=== PATIENT | female | born 1985 | race Caucasian/White ===

== ENCOUNTER → 2016-06-11 | Outpatient (CLI) | payer OTHER ==
[~2016-06-11] MED LIST: AMINOPHYLLIN200 MG PO; AMOXICILLIN500 MG PO; BACTRIM DS 8001 TA1 PO; CIPRO250 MG PO; CLINDAMYCIN HC300 MG PO; CLINDAMYCIN150 MG PO; DIFLUCAN150 MG PO; FLONASE ALLERG9.9 ML NAS; GABAPENTIN100 M2 PO; HEPARIN5000 UNIT/ SC; HYDROCODONE BIT1 T11 PO; IBU-8800 MG PO; KEFLEX500 M1 PO; KEFLEX500 MG PO; LOTRISONE 0.05%1 CRE TP; MACROBID100 M1 PO; MACROBID100 M1 SG; Motrin,Rufen800 MG PO; NAPROSYN375 MG PO; NKHM; PEN-VEE K500 MG PO; PENICILLIN VK500 MG PO; PENICILLIN-VK500 MG PO; PONSTEL250 MG PO; PRENATAL1 TA2 PO; PRENATAL1 TA7 PO; Percocet 325 MG1 TAB PO; Peridex 473 ML473 ML PO; TOPICAINE4% T; TYLENOL W/CODEI1 TA2 PO; ULTRAM50 MG PO; VICODIN 5/500 505 MG PO; VICODIN 500 MG-1 TAB PO; ZOFRAN ODT8 MG PO
[2016-06-11 14:27] LABS: HEMATOCRIT 41.5 % (37.0-47.0); HEMOGLOBIN 13.2 g/dl (12.0-16.0); MEAN CELL VOLUME 86.8 fl (81.0-99.0); MEAN CORPUSCULAR HGB 27.6 pg (27.0-31.0); MEAN CORPUSCULAR HGB CONC 31.8 g/dl (33.0-37.0); MEAN PLATELET VOLUME 10.9 fl (9.6-12.3); RED BLOOD COUNT 4.78 10*6/uL (4.10-5.10); WHITE BLOOD COUNT 7.3 10*3/uL (4.8-10.8)
[2016-06-11 14:44] LABS: ALBUMIN 3.2 gm/dl (3.1-4.5); ALKALINE PHOSPHATASE 61 U/L (45-117); BILIRUBIN, TOTAL 0.3 mg/dl (0.2-1.0); BUN 7 mg/dl (7-24); CARBON DIOXIDE 31 mmol/L (21-32); CHLORIDE 107 mmol/L (98-107); CHOLESTEROL 162 mg/dL (<200); EST GLOM FILT AFRICAN AMERICAN > 60 ml/min; GLUCOSE 83 mg/dL (65-99); HDL CHOLESTEROL 55 mg/dl (40-60); LDL CHOLESTEROL 82 mg/dL (9-159); POTASSIUM 4.1 mmol/L (3.5-5.1); SGOT/AST 11 IU/L (3-35); SGPT/ALT 17 U/L (12-78); SODIUM 146 mmol/L (136-145); TOTAL PROTEIN 6.9 gm/dL (6.4-8.2); TRIGLYCERIDES 127 mg/dl (<150); VLDL CHOLESTEROL 25 mg/dL (6-40)
== END | disposition home or self-care (01) ==
LOC: LAB 13:57
PROVIDERS: Family Medicine
DX: M25.562 Pain in left knee (principal); M25.531 Pain in right wrist; E55.9 Vitamin D deficiency, unspecified; E78.00 Pure hypercholesterolemia, unspecified; R53.83 Other fatigue; R05 Cough; M76.9 Unspecified enthesopathy, lower limb, excluding foot

== ENCOUNTER 2016-10-22 22:46 | Emergency (ER) | payer OTHER ==
[~2016-10-22] VITALS: Wt 136.1 kg
[2016-10-22 22:51] VITALS: BP 124/68
[2016-10-22 23:12] LABS: BASO % 0.3 % (0.0-1.0); EOS # 0.2 10*3/uL (0.0-0.4); EOS % 1.6 % (1.0-4.0); HEMATOCRIT 38.1 % (37.0-47.0); HEMOGLOBIN 12.3 g/dl (12.0-16.0); LYMPH # 2.2 10*3/uL (1.3-4.4); LYMPH % 21.5 % (27.0-41.0); MEAN CELL VOLUME 87.2 fl (81.0-99.0); MEAN CORPUSCULAR HGB 28.1 pg (27.0-31.0); MEAN CORPUSCULAR HGB CONC 32.3 g/dl (33.0-37.0); MEAN PLATELET VOLUME 10.1 fl (9.6-12.3); MONO # 0.6 10*3/uL (0.1-1.0); MONO % 6.2 % (3.0-9.0); NEUT # 7.3 10*3/uL (2.3-7.9); PLATELET COUNT AUTOMATED 231 10*3/uL (130-400); RED BLOOD COUNT 4.37 10*6/uL (4.10-5.10); RED CELL DISTRI WIDTH 13.6 % (0-14.5); WHITE BLOOD COUNT 10.4 10*3/uL (4.8-10.8)
[2016-10-22 23:23] LABS: BUN 8 mg/dl (7-24); CHLORIDE 101 mmol/L (98-107); CREATININE 0.61 mg/dL (0.55-1.02); POTASSIUM 3.7 mmol/L (3.5-5.1); SODIUM 139 mmol/L (136-145)
== END 2016-10-23 00:04 | disposition home or self-care (01) ==
LOC: ED 22:46
PROVIDERS: Emergency Medicine Emergency Medical Services
DX: O46.91 Antepartum hemorrhage, unspecified, first trimester (principal); Z88.6 Allergy status to analgesic agent; F17.200 Nicotine dependence, unspecified, uncomplicated; Z3A.00 Weeks of gestation of pregnancy not specified

== ENCOUNTER → 2016-10-24 | Outpatient (CLI) | payer OTHER | END | disposition home or self-care (01) | LOC: US 08:30 | DX: Z32.01 Encounter for pregnancy test, result positive (principal) ==

== ENCOUNTER 2016-11-10 19:52 | Emergency (ER) | payer OTHER ==
[~2016-11-10] VITALS: Ht 175.2 cm; Wt 165.6 kg
[2016-11-10] MEDS ORDERED: CLINDAMYCIN HC300 MG PO (20:42)
[2016-11-10 20:48] VITALS: BP 140/84
== END 2016-11-10 20:44 | disposition home or self-care (01) ==
LOC: ED 19:52
DX: K02.9 Dental caries, unspecified (principal); F17.200 Nicotine dependence, unspecified, uncomplicated; Z88.6 Allergy status to analgesic agent

== ENCOUNTER 2017-07-03 23:54 | Emergency (ER) | payer OTHER ==
[~2017-07-03] VITALS: Ht 175.2 cm; Wt 170.1 kg
[2017-07-03 23:57] VITALS: BP 139/80
[2017-07-04] MEDS ORDERED: AMOXICILLIN500 M2 PO (00:56)
== END 2017-07-04 00:55 | disposition home or self-care (01) ==
LOC: ED 23:54
DX: K08.89 Other specified disorders of teeth and supporting structures (principal); F17.200 Nicotine dependence, unspecified, uncomplicated; Z88.6 Allergy status to analgesic agent; Z79.899 Other long term (current) drug therapy

== ENCOUNTER 2017-08-19 23:10 | Emergency (ER) | payer OTHER ==
[~2017-08-19] VITALS: Ht 172.7 cm; Wt 108.9 kg
[~2017-08-19 23:10] MED LIST changes: +AMOXICILLIN500 M2 PO
[2017-08-19 23:14] VITALS: BP 138/75
[2017-08-20] MEDS ORDERED: PENICILLIN VK500 MG PO (00:34)
== END 2017-08-20 00:51 | disposition home or self-care (01) ==
LOC: ED 23:10
DX: K02.9 Dental caries, unspecified (principal); F17.200 Nicotine dependence, unspecified, uncomplicated; Z98.890 Other specified postprocedural states; Z88.5 Allergy status to narcotic agent; Z79.899 Other long term (current) drug therapy

== ENCOUNTER 2017-08-22 03:34 | Emergency (ER) | payer OTHER ==
[~2017-08-22] VITALS: Wt 158.8 kg
[2017-08-22 03:35] VITALS: BP 152/98
[2017-08-22] MEDS ORDERED: CLINDAMYCIN150 MG PO (04:10)
[2017-08-22] MEDS ORDERED: TYLENOL325 M1 PO (04:10)
[2017-08-22] MEDS ORDERED: IBU800 MG PO (04:10)
== END 2017-08-22 04:26 | disposition home or self-care (01) ==
LOC: ED 03:34
DX: K08.89 Other specified disorders of teeth and supporting structures (principal); F17.200 Nicotine dependence, unspecified, uncomplicated; Z88.6 Allergy status to analgesic agent

== ENCOUNTER 2017-09-26 12:50 | Emergency (ER) | payer OTHER ==
[~2017-09-26] VITALS: Ht 175.2 cm; Wt 181.4 kg
[~2017-09-26 12:50] MED LIST changes: +IBU800 MG PO; +TYLENOL325 M1 PO
[2017-09-26 12:53] VITALS: BP 135/70
[2017-09-26] MEDS ORDERED: DOXYCYCLINE100 M3 PO (14:03)
== END 2017-09-26 14:11 | disposition home or self-care (01) ==
LOC: ED 12:50
DX: L03.116 Cellulitis of left lower limb (principal); Z88.6 Allergy status to analgesic agent

== ENCOUNTER 2018-07-12 04:13 | Emergency (ER) | payer OTHER ==
[~2018-07-12] VITALS: Ht 175.2 cm; Wt 142.9 kg
[~2018-07-12 04:13] MED LIST changes: +CEPHALEXIN500 M1 PO; +DOXYCYCLINE100 M3 PO
[2018-07-12 04:16] VITALS: BP 111/57
[2018-07-12 05:38] LABS: BILIRUBIN NEGATIVE (NEGATIVE); BLOOD NEGATIVE (NEGATIVE); CLARITY CLEAR (CLEAR); COLOR YELLOW (YELLOW); GLUCOSE NEGATIVE (NEGATIVE); KETONE NEGATIVE (NEGATIVE); LEUKO ESTERASE NEGATIVE (NEGATIVE); NITRITE NEGATIVE (NEGATIVE); SPECIFIC GRAVITY 1.025 (1.005-1.030); UROBILINOGEN 0.2 E.U./dl (0.2-1.0)
[2018-07-12 05:48] LABS: RBC 0-2 rbc/hpf (0-2); WBC 0-2 wbc/hpf (0-5)
[2018-07-12 06:50] LABS: BASO # 0.1 10*3/uL (0.0-0.1); BASO % 0.5 % (0.0-1.0); EOS # 0.1 10*3/uL (0.0-0.4); HEMOGLOBIN 14.2 g/dl (12.0-16.0); LYMPH # 3.3 10*3/uL (1.3-4.4); LYMPH % 22.1 % (27.0-41.0); MEAN CELL VOLUME 86.6 fl (81.0-99.0); MEAN CORPUSCULAR HGB 26.7 pg (27.0-31.0); MEAN CORPUSCULAR HGB CONC 30.9 g/dl (33.0-37.0); MEAN PLATELET VOLUME 10.2 fl (9.6-12.3); MONO % 6.9 % (3.0-9.0); NEUT # 10.2 10*3/uL (2.3-7.9); PLATELET COUNT AUTOMATED 317 10*3/uL (130-400); RED BLOOD COUNT 5.31 10*6/uL (4.10-5.10); WHITE BLOOD COUNT 14.7 10*3/uL (4.8-10.8)
[2018-07-12 07:13] LABS: ALBUMIN 3.3 gm/dl (3.1-4.5); ALKALINE PHOSPHATASE 88 U/L (45-117); BUN 9 mg/dl (7-24); CHLORIDE 105 mmol/L (98-107); CREATININE 0.82 mg/dL (0.55-1.02); POTASSIUM 4.2 mmol/L (3.5-5.1); SGOT/AST 9 IU/L (3-35); SGPT/ALT 20 U/L (12-78); SODIUM 140 mmol/L (136-145); TOTAL PROTEIN 7.8 gm/dL (6.4-8.2)
[2018-07-12] MEDS ORDERED: NORCO 5-325 TA1 EACH PO (07:31)
== END 2018-07-12 07:29 | disposition home or self-care (01) ==
LOC: ED 04:13
PROVIDERS: Emergency Medicine
DX: S29.012A Strain of muscle and tendon of back wall of thorax, initial encounter (principal); N13.2 Hydronephrosis with renal and ureteral calculous obstruction; E66.01 Morbid (severe) obesity due to excess calories; F17.200 Nicotine dependence, unspecified, uncomplicated; Z88.6 Allergy status to analgesic agent; X58.XXXA Exposure to other specified factors, initial encounter; Y93.89 Activity, other specified; Y92.89 Other specified places as the place of occurrence of the external cause; Y99.8 Other external cause status

== ENCOUNTER 2018-11-02 18:27 | Emergency (ER) | payer OTHER ==
[~2018-11-02] VITALS: Ht 167.6 cm
[~2018-11-02 18:27] MED LIST changes: +NORCO 5-325 TA1 EACH PO
[2018-11-02 18:28] VITALS: BP 129/72
[2018-11-02] MEDS ORDERED: DOXYCYCLINE100 M3 PO (18:55)
[2018-11-02] MEDS ORDERED: VISTARIL25 MG PO (18:55)
[2018-11-02] MEDS ORDERED: LIDEX 0.05% CRE15 GM T (18:55)
== END 2018-11-02 19:13 | disposition home or self-care (01) ==
LOC: ED 18:27
DX: S30.861A Insect bite (nonvenomous) of abdominal wall, initial encounter (principal); L03.311 Cellulitis of abdominal wall; F17.200 Nicotine dependence, unspecified, uncomplicated; Z88.1 Allergy status to other antibiotic agents; Z88.5 Allergy status to narcotic agent; Z79.899 Other long term (current) drug therapy; Z90.49 Acquired absence of other specified parts of digestive tract; W57.XXXA Bitten or stung by nonvenomous insect and other nonvenomous arthropods, initial encounter; Y93.84 Activity, sleeping; Y92.098 Other place in other non-institutional residence as the place of occurrence of the external cause; Y99.8 Other external cause status

== ENCOUNTER 2019-04-30 23:51 | Emergency (ER) | payer OTHER ==
[~2019-04-30] VITALS: Ht 175.2 cm; Wt 142.4 kg
[~2019-04-30 23:51] MED LIST changes: +LIDEX 0.05% CRE15 GM T; +VISTARIL25 MG PO
[2019-05-01 00:03] VITALS: BP 105/64
[2019-05-01] MEDS ORDERED: NORCO 5-325 TA1 EACH PO (02:06)
== END 2019-05-01 02:16 | disposition home or self-care (01) ==
LOC: ED 23:51
DX: S80.01XA Contusion of right knee, initial encounter (principal); F17.200 Nicotine dependence, unspecified, uncomplicated; Z88.1 Allergy status to other antibiotic agents; Z88.6 Allergy status to analgesic agent; W01.0XXA Fall on same level from slipping, tripping and stumbling without subsequent striking against object, initial encounter; Y93.89 Activity, other specified; Y92.89 Other specified places as the place of occurrence of the external cause; Y99.8 Other external cause status

== ENCOUNTER → 2020-04-12 | Outpatient (CLI) | payer OTHER | END | disposition home or self-care (01) | LOC: US 14:00 | PROVIDERS: ATTEND Family Medicine | DX: G43.909 Migraine, unspecified, not intractable, without status migrainosus (principal) ==

== ENCOUNTER 2020-10-02 12:53 | Emergency (ER) | payer OTHER ==
[~2020-10-02] VITALS: Ht 172.7 cm; Wt 136.1 kg
[2020-10-02 13:13] VITALS: BP 133/67
[2020-10-02 14:07] LABS: BASO # 0.1 10*3/uL (0.0-0.1); BASO % 0.9 % (0.0-1.0); EOS # 0.3 10*3/uL (0.0-0.4); EOS % 3.2 % (1.0-4.0); LYMPH # 1.8 10*3/uL (1.3-4.4); LYMPH % 22.7 % (27.0-41.0); MEAN CELL VOLUME 91.1 fl (81.0-99.0); MEAN CORPUSCULAR HGB 28.7 pg (27.0-31.0); MEAN CORPUSCULAR HGB CONC 31.5 g/dl (33.0-37.0); MEAN PLATELET VOLUME 9.9 fl (9.6-12.3); MONO # 0.7 10*3/uL (0.1-1.0); MONO % 8.5 % (3.0-9.0); NEUT % 64.4 % (47.0-73.0); PLATELET COUNT AUTOMATED 315 10*3/uL (130-400); RED CELL DISTRI WIDTH 13.3 % (0-14.5); WHITE BLOOD COUNT 7.8 10*3/uL (4.8-10.8)
[2020-10-02 14:28] LABS: ALBUMIN 2.7 gm/dl (3.1-4.5); ALKALINE PHOSPHATASE 74 U/L (45-117); BUN 10 mg/dl (7-24); CHLORIDE 106 mmol/L (98-107); CREATININE 0.73 mg/dL (0.55-1.02); SGOT/AST 5 IU/L (3-35); SGPT/ALT 15 U/L (12-78); SODIUM 140 mmol/L (136-145); TOTAL PROTEIN 6.8 gm/dL (6.4-8.2)
[2020-10-02] MEDS ORDERED: SEPTDS PO (14:54)
== END 2020-10-02 15:31 | disposition home or self-care (01) ==
LOC: ED 12:53
PROVIDERS: Emergency Medicine
DX: O86.00 Infection of obstetric surgical wound, unspecified (principal); E66.01 Morbid (severe) obesity due to excess calories; F17.200 Nicotine dependence, unspecified, uncomplicated; Z88.1 Allergy status to other antibiotic agents; Z88.5 Allergy status to narcotic agent; Z79.2 Long term (current) use of antibiotics; Z98.890 Other specified postprocedural states; Z87.442 Personal history of urinary calculi; Z68.42 Body mass index [BMI] 45.0-49.9, adult; Z79.899 Other long term (current) drug therapy

== ENCOUNTER 2021-07-16 16:32 | Emergency (ER) | payer OTHER ==
[~2021-07-16] VITALS: Wt 158.8 kg
[~2021-07-16 16:32] MED LIST changes: +SEPTDS PO
[2021-07-16 16:43] VITALS: BP 127/65
[2021-07-16] MEDS ORDERED: CYCLOBENZAPRINE10 MG PO (17:30)
[2021-07-16] MEDS ORDERED: TYLENOL325 M1 PO (17:30)
[2021-07-16] MEDS ORDERED: ARTHRITIS PAI42.5 GM T (17:30)
[2021-07-16] MEDS ORDERED: NAPROXEN250 MG PO (17:30)
[2021-07-16] MEDS ORDERED: [UNRECOGNIZED DRUG - CODE] T (17:32)
== END 2021-07-16 17:49 | disposition home or self-care (01) ==
LOC: ED 16:32
DX: G89.29 Other chronic pain (principal); M79.604 Pain in right leg; B37.2 Candidiasis of skin and nail; Z88.1 Allergy status to other antibiotic agents; Z88.8 Allergy status to other drugs, medicaments and biological substances; Z87.891 Personal history of nicotine dependence; Z90.49 Acquired absence of other specified parts of digestive tract; Z98.890 Other specified postprocedural states

== ENCOUNTER 2021-12-08 16:52 | Emergency (ER) | payer OTHER ==
[~2021-12-08] VITALS: Ht 172.7 cm; Wt 158.8 kg
[~2021-12-08 16:52] MED LIST changes: +ARTHRITIS PAI42.5 GM T; +CYCLOBENZAPRINE10 MG PO; +NAPROXEN250 MG PO; +[UNRECOGNIZED DRUG - CODE] T
[2021-12-08 17:07] VITALS: BP 138/79
[2021-12-08] MEDS ORDERED: Motrin,Rufen800 MG PO (18:37)
[2021-12-08] MEDS ORDERED: CLEOCIN HCL150 MG PO (18:37)
== END 2021-12-08 19:20 | disposition home or self-care (01) ==
LOC: ED 16:52
DX: K08.89 Other specified disorders of teeth and supporting structures (principal); Z88.1 Allergy status to other antibiotic agents; Z88.8 Allergy status to other drugs, medicaments and biological substances; Z98.890 Other specified postprocedural states; Z87.891 Personal history of nicotine dependence; Z90.49 Acquired absence of other specified parts of digestive tract

== ENCOUNTER → 2022-01-10 | Outpatient (CLI) | payer OTHER ==
[~2022-01-10] MED LIST changes: +CLEOCIN HCL150 MG PO
[2022-01-10 11:06] LABS: BASO % 0.5 % (0.0-1.0); BILIRUBIN Negative (Negative); BLOOD Negative (Negative); CLARITY Cloudy (Clear); COLOR Yellow (Yellow); GLUCOSE Negative (Negative); HEMATOCRIT 46.5 % (37.0-47.0); KETONE Trace (Negative); LEUKO ESTERASE 2+ (Negative); LYMPH # 1.1 10*3/uL (1.3-4.4); LYMPH % 18.3 % (27.0-41.0); MEAN CELL VOLUME 84.7 fl (81.0-99.0); MEAN CORPUSCULAR HGB 27.5 pg (27.0-31.0); MEAN CORPUSCULAR HGB CONC 32.5 g/dl (33.0-37.0); MEAN PLATELET VOLUME 10.4 fl (9.6-12.3); MONO # 0.8 10*3/uL (0.1-1.0); MONO % 12.4 % (3.0-9.0); NEUT # 4.3 10*3/uL (2.3-7.9); NEUT % 68.5 % (47.0-73.0); NITRITE Positive (Negative); PH 5.5 (4.5-8.0); PLATELET COUNT AUTOMATED 182 10*3/uL (130-400); RED BLOOD COUNT 5.49 10*6/uL (4.10-5.10); RETICULOCYTE % 0.74 % (0.50-2.50); SPECIFIC GRAVITY 1.025 (1.001-1.030); WHITE BLOOD COUNT 6.2 10*3/uL (4.8-10.8)
[2022-01-10 11:28] LABS: ALKALINE PHOSPHATASE 74 U/L (45-117); BUN 8 mg/dl (7-24); CHLORIDE 106 mmol/L (98-107); CHOLESTEROL 174 mg/dL (<200); CREATININE 0.73 mg/dL (0.55-1.02); GAMMA GLUTAMYL TRANSPEPTIDASE 24 U/L (5-55); IRON 28 ug/dL (50-170); LDL CHOLESTEROL 104 mg/dL (9-159); POTASSIUM 3.6 mmol/L (3.5-5.1); SGPT/ALT 18 U/L (12-78); SODIUM 139 mmol/L (136-145); T3 UPTAKE 31 % (31-39); THYROXINE (T4) TOTAL 14.3 ug/dl (4.8-13.9); TOTAL PROTEIN 7.9 gm/dL (6.4-8.2); TRIGLYCERIDES 77 mg/dl (<150); URIC ACID 4.2 mg/dL (2.6-6.0)
[2022-01-10 11:35] LABS: THYROID STIM HORMONE (HS) 0.834 uIU/ml (0.358-4.75)
[2022-01-10 12:55] LABS: BACTERIA 4+
[2022-01-10 12:56] LABS: MUCOUS TRACE
[2022-01-10 12:57] LABS: WBC 21-30 wbc/hpf (0-5)
[2022-01-12 16:05] LABS: ANTI-DSDNA ANTIBODIES <1 IU/mL (0-9)
== END | disposition home or self-care (01) ==
LOC: LAB 09:49
PROVIDERS: ATTEND Family Medicine
DX: M17.0 Bilateral primary osteoarthritis of knee (principal); R79.89 Other specified abnormal findings of blood chemistry; R53.83 Other fatigue; E55.9 Vitamin D deficiency, unspecified; E78.5 Hyperlipidemia, unspecified; M47.819 Spondylosis without myelopathy or radiculopathy, site unspecified

== ENCOUNTER 2022-03-21 23:08 | Emergency (ER) | payer OTHER ==
[~2022-03-21] VITALS: Ht 172.7 cm; Wt 145.1 kg
[2022-03-21 23:17] VITALS: BP 138/74
[2022-03-22] MEDS ORDERED: CLINDAMYCIN HC300 MG PO (00:08)
== END 2022-03-22 00:20 | disposition home or self-care (01) ==
LOC: ED 23:08
DX: K04.7 Periapical abscess without sinus (principal); Z88.1 Allergy status to other antibiotic agents; Z88.8 Allergy status to other drugs, medicaments and biological substances; Z90.49 Acquired absence of other specified parts of digestive tract; Z98.890 Other specified postprocedural states; Z87.891 Personal history of nicotine dependence

== ENCOUNTER 2023-07-19 22:15 | Emergency (ER) | payer OTHER ==
[~2023-07-19] VITALS: Wt 187.3 kg
[2023-07-19 22:28] VITALS: BP 169/110
[2023-07-19] MEDS ORDERED: CLEOCIN HCL300 MG PO (22:28)
[2023-07-19] MEDS ORDERED: CLINDAMYCIN HCL 300 MG CAPSULE PO ONE ×2 (22:30→22:35)
== END 2023-07-19 22:40 | disposition home or self-care (01) ==
LOC: ED 22:15
DX: K08.89 Other specified disorders of teeth and supporting structures (principal); J45.909 Unspecified asthma, uncomplicated; F17.200 Nicotine dependence, unspecified, uncomplicated; Z88.1 Allergy status to other antibiotic agents; Z88.5 Allergy status to narcotic agent; Z98.890 Other specified postprocedural states; Z90.49 Acquired absence of other specified parts of digestive tract

== ENCOUNTER 2023-07-22 02:04 | Emergency (ER) | payer OTHER ==
[~2023-07-22] VITALS: Ht 175.2 cm; Wt 197.3 kg
[~2023-07-22 02:04] MED LIST changes: +CLEOCIN HCL300 MG PO
[2023-07-22] MEDS ORDERED: Ketorolac Tromethamine 60 MG/2 ML VIAL IM ONE (02:20)
[2023-07-22 02:22] VITALS: BP 215/102
[2023-07-22] MEDS ORDERED: Acetaminophen/Hydrocodone 5 MG/325 MG TABLET PO ONE (02:25)
== END 2023-07-22 03:03 | disposition home or self-care (01) ==
LOC: ED 02:04
DX: K02.9 Dental caries, unspecified (principal); K08.89 Other specified disorders of teeth and supporting structures; J45.909 Unspecified asthma, uncomplicated; F17.200 Nicotine dependence, unspecified, uncomplicated; Z88.1 Allergy status to other antibiotic agents; Z88.5 Allergy status to narcotic agent; Z98.890 Other specified postprocedural states; Z90.49 Acquired absence of other specified parts of digestive tract

== ENCOUNTER → 2024-04-30 | Outpatient (CLI) | payer OTHER | END | disposition home or self-care (01) | LOC: US 10:19 | PROVIDERS: ATTEND Family Medicine | DX: M79.605 Pain in left leg (principal); M79.604 Pain in right leg ==